=== PATIENT | male | born 1960 | race Caucasian/White ===

== ENCOUNTER 2019-05-01 20:32 | Observation (INO) ==
--- NOTE | 2019-05-01 21:48 | Diag Imaging Result Doc PS360 ---
XRAY PELVIS W/HIP 2-3VW RT - 05/01/2019 INDICATION: right hip pain TECHNIQUE: Three views COMPARISON: 11/05/2016 FINDINGS: There is a comminuted, slightly displaced periprosthetic fracture through the greater trochanter and intertrochanteric right femur. No dislocation. IMPRESSION: Periprosthetic fracture through the right proximal femur. Electronically signed by Evelio Goldstein 05/01/2019 9:45 PM
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
[2019-05-02] MEDS ORDERED: ZOFRAN IV PRN (01:29)
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
[2019-05-02 02:03] LABS: BASO# 0.04 X1000 (0.0-0.2); BASO% 0.4 % (0.0-0.8); EOS# 0.19 X1000 (0.0-0.7); EOS% 1.9 % (0.0-10.0); HEMATOCRIT 41.7 % (42.0-52.0); LYMPH# 1.83 X1000 (1.2-3.4); LYMPH% 18.7 % (20.5-51.1); MCHC 33.6 g/dL (33-37); MCV 92.3 FL (81-99); MONO# 0.64 X1000 (0.11-0.59); MONO% 6.5 % (1.7-9.3); MPV 9.3 FL (7.4-10.4); NEUT# 7.09 X1000 (1.4-6.5); NEUT% 72.5 % (42.2-75.2); PLT 226 X1000 (130-400); RBC 4.52 XMIL (4.7-6.1); WBC 9.79 X1000 (4.8-10.8)
[2019-05-02 02:25] LABS: CHLORIDE 100 mmol/L (98-107); POTASSIUM 4.3 mmol/L (3.5-5.1); SODIUM 139 mmol/L (136-145)
[2019-05-02 02:26] LABS: AGAP 17; BUN 8 mg/dL (8-22); CALCIUM 8.9 mg/dL (8.8-10.2); COSMO 275; CREATININE 0.7 mg/dL (0.7-1.2); ESTIMATED GFR > 60; GLUCOSE 86 mg/dL (70-104); TCO2 22 mmol/L (25-35)
[2019-05-02] MEDS: NORCO-5 PO PRN ×2 (05:11→10:35)
[2019-05-02] MEDS: DILAUDID IV PRN ×2 (08:21→12:29)
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
[2019-05-02 12:42] VITALS: BP 166/84
--- NOTE | 2019-05-03 10:04 | DISCHARGE SUMMARY ---
ADMISSION DATE: 05/02/2019 DISCHARGE DATE: 05/02/2019 DISCHARGE DIAGNOSES: 1. Right periprosthetic fracture of the right proximal femur. 2. Hypertension. CONSULTATIONS: Dr. Cali from Orthopedics. PROCEDURES: Hip and pelvis x-ray showed periprosthetic fracture throughout the right proximal femur. HOSPITAL COURSE: In brief, this is a 58-year-old male with a history of hypertension, who presented to the emergency department after he had a fall. He was noted to have a periprosthetic fracture to the right proximal femur. The patient was admitted to the hospital for this condition. Orthopedics was consulted and they mentioned that they are not going to perform any surgery and they recommend a followup in the office in a couple weeks and will continue with pain medication. The patient was explained that he needed to stay in the hospital to try to control his pain better but he said that he was feeling fine and he was ready to go home. He said that he is going to have a follow with Dr. Cali in 2 to 3 weeks. The patient is going to be discharged in stable condition. DISCHARGE PHYSICAL EXAMINATION: Vital signs: Temperature 98.4 degrees, heart rate 91, respiratory rate 20, blood pressure 166/84, O2 saturation 98% on room air. General: This is a 58-year-old male lying in bed in no acute distress. Cardiovascular: S1, S2 heard. No murmurs, gallops or rubs. Regular rate and rhythm. Respiratory: Clear bilaterally to auscultation. No work of breathing or using accessory muscles. Abdomen: Soft, nontender to palpation. Bowel sounds present. No organomegaly. Extremities: No clubbing, cyanosis or edema. Peripheral pulses present in both legs. Neurologic: Patient is alert and oriented x3. Moves 4 extremities. DISCHARGE DISPOSITION: Home to self-care. DISCHARGE MEDICATIONS: We are not going to provide any new medications. cc: Oj Dickerson MD
== END 2019-05-02 16:52 | disposition home or self-care (01) ==
LOC: 4N 20:32 → ED 20:32 → SUATTDRO 05-02 00:36
PROVIDERS: ATTEND Internal Medicine